=== PATIENT | female | born 1990 | race Caucasian/White ===

== ENCOUNTER 2020-03-05 11:34 | Emergency (ER) | payer OTHER ==
[~2020-03-05] VITALS: Ht 160 cm; Wt 74.1 kg
[2020-03-05] MEDS ORDERED: TIZA4CAP PO (11:47)
[2020-03-05] MEDS ORDERED: DICL75TA PO (11:47)
[2020-03-05] MEDS ORDERED: GABA-843 PO (11:47)
[2020-03-05] MEDS ORDERED: TYLETAB14 PO (11:47)
[2020-03-05] MEDS ORDERED: PRED5PAK PO (12:05)
[2020-03-05] MEDS ORDERED: diazePAM 10 MG TAB PO ONE (13:00)
[2020-03-05] MEDS ORDERED: KETOROLAC 30 MG/ML 1ML VIAL IV ONE (13:00)
[2020-03-05 14:23] LABS: BASO # 0.1 10^3/uL (0.0-0.2); BASO % 0.5 % (0.0-1.0); EOS # 0.1 10^3/uL (0.0-0.5); EOS % 0.9 % (0.0-3.0); HEMATOCRIT 43.5 % (36.0-47.0); HEMOGLOBIN 14.2 g/dl (12.0-15.5); LYMPH # 4.3 10^3/uL (1.5-5.0); LYMPH % 29.4 % (24.0-44.0); MEAN CORPUSCULAR HEMOGLOBIN 31.8 pg (27.0-33.0); MEAN CORPUSCULAR HGB CONC 32.6 g/dl (32.0-36.5); MEAN CORPUSCULAR VOLUME 97.3 fl (80.0-96.0); MONO % 6.8 % (0.0-5.0); PLATELET COUNT, AUTOMATED 295 10^3/uL (150-450); RED BLOOD COUNT 4.47 10^6/uL (4.00-5.40); WHITE BLOOD COUNT 14.5 10^3/uL (4.0-10.0)
[2020-03-05] MEDS ORDERED: diphenhydrAMINE 50MG/ML VIAL (J1200) IV ONE (14:45)
[2020-03-05] MEDS ORDERED: METOCLOPRAMIDE INJ 10MG/2ML VIAL (J2765 PER 1) IV ONE (14:45)
[2020-03-05 14:51] LABS: ALBUMIN 3.8 GM/DL (3.2-5.2); ALT/SGPT 20 U/L (12-78); BILIRUBIN,DIRECT 0.2 MG/DL (0.0-0.2); BLOOD UREA NITROGEN 13 MG/DL (7-18); CALCIUM LEVEL 9.4 MG/DL (8.5-10.1); CARBON DIOXIDE LEVEL 29 MEQ/L (21-32); CHLORIDE LEVEL 106 MEQ/L (98-107); CK-MB VALUE MASS < 1.0 NG/ML (<3.6); CPK CREATINE PHOSPHOKINASE 66 U/L (26-192); CREATININE FOR GFR 0.81 MG/DL (0.55-1.30); GLOMERULAR FILTRATION RATE > 60.0 (>60); GLUCOSE, FASTING 74 MG/DL (70-100); HCG, SERUM QUALITATIVE NEGATIVE (NEGATIVE); LIPASE 104 U/L (73-393); MB/CK RELATIVE INDEX 1.52 (< OR =4); POTASSIUM SERUM 4.2 MEQ/L (3.5-5.1); SODIUM LEVEL 141 MEQ/L (136-145); TOTAL PROTEIN 7.6 GM/DL (6.4-8.2); TROPONIN I < 0.02 NG/ML (< 0.10)
[2020-03-05] MEDS ORDERED: PROHANCE 279.3MG/ML 15ML VIAL As Ordered ONE (16:42)
[2020-03-05 18:31] VITALS: BP 127/81
--- NOTE | 2020-03-17 12:35 | ECGEPIP ---
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
--- NOTE | 2020-04-01 13:06 | REP ---
CT OF THE BRAIN WITHOUT CONTRAST: HISTORY: Severe migraine. FINDINGS: CT brain performed without IV contrast. Coronal reconstruction images are performed. The ventricles are normal in size and position with no midline shift or mass effect. Aranda-white differentiation is well-maintained. There is no acute intracranial hemorrhage or extra-axial fluid collection. Bone window examination is unremarkable. IMPRESSION: Negative noncontrast CT brain. Preliminary report provided by virtual radiology at the time of the examination. LESLIED
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
== END 2020-03-05 18:49 | disposition home or self-care (01) ==
LOC: M ED 11:34
DX: M54.5 Low back pain (principal); G89.29 Other chronic pain; R51 Headache; M51.37 Other intervertebral disc degeneration, lumbosacral region; G93.9 Disorder of brain, unspecified; F41.9 Anxiety disorder, unspecified; F32.9 Major depressive disorder, single episode, unspecified; F17.210 Nicotine dependence, cigarettes, uncomplicated
CPT/HCPCS: 70450; 72158; 80048; 80076; 81001; 82550; 82553; 83690; 84484; 84703; 85025; 87040; 93005; 96374; 96375; 99284; A9576; J1200; J1885; J2765

== ENCOUNTER 2020-04-09 02:35 | Inpatient (IN) | payer OTHER ==
[~2020-04-09] VITALS: Ht 160 cm; Wt 74.8 kg
[~2020-04-09 02:35] MED LIST: DICL75TA PO; GABA-843 PO; PRED5PAK PO; TIZA4CAP PO; TYLETAB14 PO
[2020-04-09] MEDS ORDERED: VALI10TA PO (02:43)
[2020-04-09 03:30] LABS: HEMATOCRIT 37.6 % (36.0-47.0); HEMOGLOBIN 12.3 g/dl (12.0-15.5); MEAN CORPUSCULAR HEMOGLOBIN 31.2 pg (27.0-33.0); MEAN CORPUSCULAR HGB CONC 32.7 g/dl (32.0-36.5); MEAN CORPUSCULAR VOLUME 95.4 fl (80.0-96.0); PLATELET COUNT, AUTOMATED 332 10^3/uL (150-450); RED BLOOD COUNT 3.94 10^6/uL (4.00-5.40); WHITE BLOOD COUNT 18.5 10^3/uL (4.0-10.0)
[2020-04-09 03:56] LABS: AMPHETAMINES LEVEL URINE NEGATIVE (NEGATIVE); BARBITURATES URINE NEGATIVE (NEGATIVE); BENZODIAZEPINES URINE POSITIVE (NEGATIVE); CANNABINOIDS URINE POSITIVE (NEGATIVE); COCAINE METABOLITE URINE NEGATIVE (NEGATIVE); METHADONE URINE NEGATIVE (NEGATIVE); OPIATES URINE NEGATIVE (NEGATIVE); PHENCYCLIDINE URINE NEGATIVE (NEGATIVE)
[2020-04-09 04:07] LABS: ACETAMINOPHEN LEVEL < 2.0 UG/ML (10.0-30.0); ALBUMIN 3.9 GM/DL (3.2-5.2); ALT/SGPT 15 U/L (12-78); BILIRUBIN,DIRECT 0.1 MG/DL (0.0-0.2); BILIRUBIN,TOTAL 0.4 MG/DL (0.2-1.0); BLOOD UREA NITROGEN 10 MG/DL (7-18); CALCIUM LEVEL 9.6 MG/DL (8.5-10.1); CARBON DIOXIDE LEVEL 23 MEQ/L (21-32); CHLORIDE LEVEL 109 MEQ/L (98-107); CREATININE FOR GFR 0.92 MG/DL (0.55-1.30); ETHYL ALCOHOL (ETHANOL) < 0.003 % (0.000-0.010); GLOMERULAR FILTRATION RATE > 60.0 (>60); GLUCOSE, FASTING 118 MG/DL (70-100); POTASSIUM SERUM 4.3 MEQ/L (3.5-5.1); SALICYLATE LEVEL < 1.7 MG/DL (5.0-30.0); SODIUM LEVEL 139 MEQ/L (136-145)
[2020-04-09 04:11] LABS: HCG, SERUM QUALITATIVE NEGATIVE (NEGATIVE)
[2020-04-09] MEDS ORDERED: MULTTAB20 PO (11:03)
[2020-04-09] MEDS ORDERED: JULE1TAB PO (11:03)
[2020-04-09] MEDS ORDERED: WELLTAB38 PO (11:03)
[2020-04-09] MEDS ORDERED: tiZANidine 4 MG TAB PO ONE (11:30)
[2020-04-09] MEDS ORDERED: GABAPENTIN 300 MG CAP PO ONE (14:00)
[2020-04-09] MEDS ORDERED: diazePAM 10 MG TAB PO PRN (14:45)
[2020-04-09] MEDS ORDERED: MOM 30ML SUSPENSION UDC PO PRN (14:45)
[2020-04-09] MEDS ORDERED: MAALOX 30 ML SUSP *UDC PO PRN (14:45)
[2020-04-09 16:42] VITALS: BP 133/84
[2020-04-09] MEDS ORDERED: NICOTINE 21MG/24HR 1 EA TRANSDERMAL TD ONE (17:30)
[2020-04-09] MEDS: GABAPENTIN 300 MG CAP PO SCH (20:54)
[2020-04-09] MEDS: tiZANidine 4 MG TAB PO SCH (20:54)
[2020-04-09] MEDS: traZODone 50 MG TAB PO PRN (20:54)
[2020-04-09] MEDS ORDERED: ONDANSETRON 4 MG ORAL DISINTEGRATING TAB PO ONE (21:45)
[2020-04-10 06:33] VITALS: BP 142/70
[2020-04-10] MEDS: GABAPENTIN 300 MG CAP PO SCH ×3 (08:39→20:47)
[2020-04-10] MEDS: tiZANidine 4 MG TAB PO SCH ×2 (08:40→20:47)
[2020-04-10] MEDS: NICOTINE 21MG/24HR 1 EA TRANSDERMAL TD SCH ×2 (09:00→14:18)
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
[2020-04-10] MEDS ORDERED: diazePAM 5 MG TAB PO PRN (11:30)
[2020-04-10] MEDS ORDERED: ONDANSETRON 4 MG ORAL DISINTEGRATING TAB PO ONE (12:00)
[2020-04-10] MEDS ORDERED: buPROPion **XL** TABLET 150MG (WELLBUTRIN XL) PO ONE (14:00)
[2020-04-10] MEDS: LIDOCAINE 5% (LIDODERM) PATCH TD SCH (14:06)
--- NOTE | 2020-04-10 14:47 | HPEPDOC ---
[facility] Medical History & Physical Date of Admission Apr 09, 2020 Date of Service: Apr 10, 2020 Attending Physician: A History and Physical CHIEF COMPLAINT: Suicide attempt HISTORY OF PRESENT ILLNESS: Patient is a 29-year-old female with depression, anxiety, chronic low back pain, and migraines who is in the inpatient mental health unit for suicide attempt. She has longitudinal cuts on her right wrist. Otherwise for the past few days, she has not been feeling well. Yesterday she started having nausea, diarrhea, vomiting. She tells that her significant other also had similar symptoms. Denies sick contacts, travel, recent antibiotics, or eating anything strange. She requested some lemon wedges for nausea. I told her it would be okay to try, but she'll have Zofran as needed as well. Other than that, she has chronic low back pain that has been unchanged. She also has been having migraines that have been unchanged. Denies any diplopia. PAST MEDICAL HISTORY: 1. Depression/anxiety. 2. Suicide attempt. 3. Arthritis 4. DJD 5. Remote history of asthma 6. Migraines 7. Frequent UTIs 8. Questionable pituitary lesion. PAST SURGICAL HISTORY: 1. Appendectomy. 2. Surgery for intussusception SOCIAL HISTORY: Tobacco use: Vapes on and off ETOH: Rarely Illicit drug use: Smokes marijuana when stressed FAMILY HISTORY: Father: High blood pressure and hyperlipidemia Mother: Unknown per patient ALLERGIES: Please see below. REVIEW OF SYSTEMS: CONSTITUTIONAL: Reports a sensation of mental fogginess. Denies any fever or chills. ENT: Denies sore throat. Denies dysphagia. RESPIRATORY: Denies shortness of breath. Denies cough. CARDIOVASCULAR: Denies chest pain. Denies palpitations. GASTROINTESTINAL: Reports nausea, vomiting, and diarrhea for one days duration GENITOURINARY: Denies dysuria. CUTANEOUS: Denies rashes. MUSCULOSKELETAL: Reports difficulty with ambulation, tells me that she uses a walking stick home NEUROLOGICAL: Intermittent numbness in her legs ENDOCRINOLOGY: Denies polyuria, polyphagia, polydipsia HOME MEDICATIONS: Please see below. PHYSICAL EXAMINATION: VITAL SIGNS: Temperature 98.5, pulse 91, respiratory rate 18, blood pressure 142/70, pulse oximetry 98 % on room air. GENERAL: Comfortable, in no apparent distress. HEENT: Head normocephalic/atraumatic, EOMI, sclera clear. NECK: Supple RESPIRATORY: Lungs clear to auscultation bilaterally, no rales, wheeze or rhonchi. CARDIOVASCULAR: Regular rate and rhythm. ABDOMEN: Soft, mild tenderness, decreased bowel sounds MUSCLE SKELETAL: Exhibit back pain when tested muscles of arms. No pitting edema NEUROLOGICAL: CN 312 grossly intact, no focal deficits noted. PSYCHOLOGICAL: Flat affect, appears depressed LABORATORY DATA: See below. ASSESSMENT AND PLAN: 1. Suicide attempt Being managed in the inpatient mental health unit 2. Gastroenteritis Started having acute nausea and vomiting with diarrhea. Significant other also nauseous May be viral gastroenteritis Recommended supportive care, oral rehydration Small meals with bland food Can try lemon wedge for nausea. Can also use Zofran for nausea Appears to have some leukocytosis. Repeat another CBC tomorrow. Leukocytosis may be from gastroenteritis versus self cutting 3. Chronic low back pain We'll try lidocaine patch to ease the pain 4. Migraines Okay to start Excedrin as needed 5. Questionable pituitary lesion No records here No neurologic symptoms, no diplopia, no signs of mass effect On discharge, she should see her PCP for workup of pituitary lesion Vital Signs Vital Signs Date Time Temp Pulse Resp B/P (MAP) Pulse Ox O2 Delivery O2 Flow Rate FiO2 04/10/20 06:33 98.5 91 18 142/70 (94) 04/09/20 16:42 98 Room Air Home Medications Scheduled Bupropion HCl (Wellbutrin Xl) 150 Mg Tab.er.24h, 150 MG PO DAILY NEW MED, PATIENT HAS NOT STARTED Desogestrel-Ethinyl Estradiol ( 28 Day Tablet) 1 Each Tablet, 1 TAB PO DAILY Gabapentin (Gabapentin) 300 Mg Capsule, 300 MG PO TID No122/Iron/Folic Acid ( Multi Tablet) 1 Each Tablet, 1 TAB PO DAILY Tizanidine HCl (Tizanidine HCl) 4 Mg Capsule, 4 MG PO BID Scheduled PRN Acetaminophen with Codeine (Tylenol with Codeine #3 Tablet) 1 Each Tablet, 1-2 TAB PO Q6H PRN for PAIN MDD 6 TABLETS Diazepam (Valium) 10 Mg Tablet, 15 MG PO BID PRN for ANXIETY Allergies Coded Allergies: No Known Allergies (Verified Allergy, Unknown, 03/05/20) A-FIB/CHADSVASC A-FIB History Current/History of A-Fib/PAF?: No JATIN ZAFAR DO Apr 10, 2020 14:29
[2020-04-10] MEDS: EXCEDRIN MIGRAINE TABLET PO PRN (15:34)
[2020-04-10] MEDS: **NOTE PATIENT COMMENT** MISC XX SCH (20:49)
[2020-04-11 06:28] VITALS: BP 134/72
[2020-04-11 07:44] LABS: HEMOGLOBIN 13.7 g/dl (12.0-15.5); MEAN CORPUSCULAR HEMOGLOBIN 31.1 pg (27.0-33.0); MEAN CORPUSCULAR HGB CONC 31.9 g/dl (32.0-36.5); MEAN CORPUSCULAR VOLUME 97.7 fl (80.0-96.0); PLATELET COUNT, AUTOMATED 351 10^3/uL (150-450); WHITE BLOOD COUNT 13.1 10^3/uL (4.0-10.0)
[2020-04-11] MEDS: tiZANidine 4 MG TAB PO SCH ×2 (08:16→21:06)
[2020-04-11] MEDS: LIDOCAINE 5% (LIDODERM) PATCH TD SCH (08:16)
[2020-04-11] MEDS: buPROPion **XL** TABLET 150MG (WELLBUTRIN XL) PO SCH (08:16)
[2020-04-11] MEDS: GABAPENTIN 300 MG CAP PO SCH ×3 (08:16→21:06)
[2020-04-11] MEDS: NICOTINE 21MG/24HR 1 EA TRANSDERMAL TD SCH (08:17)
[2020-04-11] MEDS: ONDANSETRON 4 MG ORAL DISINTEGRATING TAB PO PRN (08:17)
[2020-04-11] MEDS: ACETAMINOPHEN TAB 650MG DOSE (2X325MG) PO PRN (13:47)
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
[2020-04-11 18:56] VITALS: BP 142/88
[2020-04-11] MEDS: diazePAM 5 MG TAB PO PRN (21:06)
[2020-04-11] MEDS: **NOTE PATIENT COMMENT** MISC XX SCH (21:08)
[2020-04-12 06:41] VITALS: BP 145/94
[2020-04-12] MEDS: NICOTINE 21MG/24HR 1 EA TRANSDERMAL TD SCH (09:25)
[2020-04-12] MEDS: LIDOCAINE 5% (LIDODERM) PATCH TD SCH (09:25)
[2020-04-12] MEDS: GABAPENTIN 300 MG CAP PO SCH ×3 (09:26→20:41)
[2020-04-12] MEDS: tiZANidine 4 MG TAB PO SCH ×2 (09:26→20:42)
[2020-04-12] MEDS: EXCEDRIN MIGRAINE TABLET PO PRN (09:26)
[2020-04-12] MEDS: buPROPion **XL** TABLET 150MG (WELLBUTRIN XL) PO SCH (09:26)
[2020-04-12] MEDS: ACETAMINOPHEN TAB 650MG DOSE (2X325MG) PO PRN ×2 (16:00→23:12)
[2020-04-12 18:05] VITALS: BP 135/93
[2020-04-12] MEDS: **NOTE PATIENT COMMENT** MISC XX SCH (20:39)
[2020-04-12] MEDS: diazePAM 5 MG TAB PO PRN (20:42)
[2020-04-12] MEDS: traZODone 50 MG TAB PO PRN (23:12)
[2020-04-13] MEDS: ONDANSETRON 4 MG ORAL DISINTEGRATING TAB PO PRN (05:10)
[2020-04-13 06:59] VITALS: BP 142/84
[2020-04-13] MEDS: buPROPion **XL** TABLET 150MG (WELLBUTRIN XL) PO SCH (09:00)
[2020-04-13] MEDS: LIDOCAINE 5% (LIDODERM) PATCH TD SCH (09:00)
[2020-04-13] MEDS: NICOTINE 21MG/24HR 1 EA TRANSDERMAL TD SCH (09:00)
[2020-04-13] MEDS: tiZANidine 4 MG TAB PO SCH ×2 (09:00→22:11)
[2020-04-13] MEDS: GABAPENTIN 300 MG CAP PO SCH ×3 (09:00→22:11)
--- NOTE | 2020-04-13 15:40 | MHIPN ---
DATE: 04/12/2020 The patient today tells me that she is feeling fine. She says that she is having pain in her back, though, and as a result she did not sleep good last night. She has no other complaints other that. MENTAL STATUS EXAMINATION: This patient is alert and oriented times three, pleasant and cooperative, verbally spontaneous. There is no formal thought disorder noted. Mood is better. Affect full range and appropriate. She is not psychotic, suicidal, homicidal. Concentration is fair. Memory is intact. Insight and judgment are fair. DIAGNOSES: 1. Major depressive disorder. 2. Posttraumatic stress disorder. 3. Unspecified anxiety disorder. TREATMENT PLAN: At this point, the patient is stable and will continue on the current medications, and these will be titrated as indicated until the patient is restabilized. [facility]
[2020-04-13] MEDS: ACETAMINOPHEN TAB 650MG DOSE (2X325MG) PO PRN ×2 (15:48→22:57)
[2020-04-13] MEDS: diazePAM 5 MG TAB PO PRN (16:05)
[2020-04-13 18:12] VITALS: BP 152/77
[2020-04-13] MEDS: **NOTE PATIENT COMMENT** MISC XX SCH (21:00)
[2020-04-13] MEDS: traZODone 50 MG TAB PO PRN (22:11)
[2020-04-14 06:36] VITALS: BP 122/70
[2020-04-14] MEDS: NICOTINE 21MG/24HR 1 EA TRANSDERMAL TD SCH (09:01)
[2020-04-14] MEDS: tiZANidine 4 MG TAB PO SCH (09:01)
[2020-04-14] MEDS: LIDOCAINE 5% (LIDODERM) PATCH TD SCH (09:03)
[2020-04-14] MEDS: buPROPion **XL** TABLET 150MG (WELLBUTRIN XL) PO SCH (09:03)
[2020-04-14] MEDS: GABAPENTIN 300 MG CAP PO SCH (09:03)
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
[2020-04-14] MEDS: ACETAMINOPHEN TAB 650MG DOSE (2X325MG) PO PRN (10:21)
[2020-04-14] MEDS: diazePAM 5 MG TAB PO PRN (10:21)
[2020-04-14] MEDS ORDERED: WELLTAB38 PO (10:31)
--- NOTE | 2020-04-15 15:18 | MHIPN ---
DATE: 04/13/2020 SUBJECTIVE: The patient today states that she continues to feel good. She denies being suicidal and has no complaints other than her ongoing back pain. MENTAL STATUS EXAM: She is alert and oriented x3, pleasant, cooperative, verbally spontaneous. No formal thought disorder noted. She says her mood is good. Her affect is appropriate to mood. She is not psychotic, suicidal, homicidal. Concentration is fair. Memory intact. Insight and judgment is fair. DIAGNOSIS: Major depressive disorder, post-traumatic stress disorder and unspecified anxiety disorder. TREATMENT PLAN: At this point, we will continue to monitor the patient for continued elevation and stabilization of her mood and continue resolution of any suicidal ideations. LIZBETH
== END 2020-04-14 13:20 | disposition home or self-care (01) | DRG 885 ==
LOC: M ED 02:35 → M ED INP 14:45 → M PSY 16:00
PROVIDERS: ADMIT Psychiatry & Neurology Addiction Medicine; ATTEND Psychiatry & Neurology Addiction Medicine
DX: F33.9 Major depressive disorder, recurrent, unspecified (principal); F41.9 Anxiety disorder, unspecified; Z79.899 Other long term (current) drug therapy; Z62.810 Personal history of physical and sexual abuse in childhood; Z63.0 Problems in relationship with spouse or partner; Z91.5 Personal history of self-harm; G43.909 Migraine, unspecified, not intractable, without status migrainosus; Z87.440 Personal history of urinary (tract) infections; M19.90 Unspecified osteoarthritis, unspecified site; A08.4 Viral intestinal infection, unspecified; M54.5 Low back pain; F43.12 Post-traumatic stress disorder, chronic

== ENCOUNTER → 2020-05-22 | Outpatient (CLI) | payer OTHER ==
[~2020-05-22] MED LIST changes: +JULE1TAB PO; +MULTTAB20 PO; +VALI10TA PO; +WELLTAB38 PO
--- NOTE | 2020-05-24 07:49 | REP ---
INDICATION: PULMONARY NODULE COMPARISON: None TECHNIQUE: Axial noncontrast images from the thoracic inlet to the upper abdomen with coronal and sagittal reformations. This CT examination was performed using the following dose reduction techniques: Automated exposure control, adjustment of mA and/or kv according to the patient's size, and use of iterative reconstruction technique. FINDINGS: There is a 3 mm noncalcified pulmonary nodule in the periphery of the left lower lobe (image 59). The lung saldaña are otherwise essentially clear. No consolidation, effusion, or pneumothorax. Tracheobronchial tree is patent. No adenopathy. Mediastinum demonstrates normal vascular structures and appearance to the heart/pericardium. Surrounding musculoskeletal structures are intact. IMPRESSION: 3 mm noncalcified nodule in the periphery of the left lower lobe. Low risk patients require no further investigation while high risk patients may warrant 12 month follow-up examination. <Electronically signed by Prashant Rincon > 05/24/20 0745
== END ==
LOC: M RAD 12:30
PROVIDERS: ATTEND Family Medicine
DX: R91.1 Solitary pulmonary nodule (principal)

== ENCOUNTER → 2020-08-01 | Outpatient (CLI) | payer OTHER ==
[~2020-08-01] MED LIST changes: +GABA-282 PO; -GABA-843 PO
[2020-08-01 15:55] LABS: BASO % 0.6 % (0.0-1.0); EOS # 0.1 10^3/uL (0.0-0.5); EOS % 1.1 % (0.0-3.0); HEMATOCRIT 39.8 % (36.0-47.0); HEMOGLOBIN 12.7 g/dl (12.0-15.5); LYMPH # 2.2 10^3/uL (1.5-5.0); LYMPH % 33.4 % (24.0-44.0); MEAN CORPUSCULAR HEMOGLOBIN 31.2 pg (27.0-33.0); MEAN CORPUSCULAR HGB CONC 31.9 g/dl (32.0-36.5); MEAN CORPUSCULAR VOLUME 97.8 fl (80.0-96.0); MONO # 0.4 10^3/uL (0.0-0.8); MONO % 6.2 % (0.0-5.0); NEUTROPHILS # 3.8 10^3/uL (1.5-8.5); NEUTROPHILS % 58.5 % (36.0-66.0); PLATELET COUNT, AUTOMATED 281 10^3/uL (150-450); RED BLOOD COUNT 4.07 10^6/uL (4.00-5.40); WHITE BLOOD COUNT 6.5 10^3/uL (4.0-10.0)
[2020-08-01 16:26] LABS: ALBUMIN 3.6 GM/DL (3.2-5.2); ALT/SGPT 18 U/L (12-78); BILIRUBIN,TOTAL 0.6 MG/DL (0.2-1.0); BLOOD UREA NITROGEN 10 MG/DL (7-18); CALCIUM LEVEL 9.2 MG/DL (8.5-10.1); CARBON DIOXIDE LEVEL 29 MEQ/L (21-32); CHLORIDE LEVEL 104 MEQ/L (98-107); CREATININE FOR GFR 0.82 MG/DL (0.55-1.30); GLOMERULAR FILTRATION RATE > 60.0 (>60); GLUCOSE, FASTING 87 MG/DL (70-100); POTASSIUM SERUM 4.4 MEQ/L (3.5-5.1); RHEUMATOID FACTOR QUANT < 10.0 IU/ML (<15.0); SODIUM LEVEL 141 MEQ/L (136-145); TOTAL 25(OH) VITAMIN D 20.9 NG/ML (30.0-100.0)
[2020-08-01 16:27] LABS: PROLACTIN 5.5 NG/ML
[2020-08-01 16:30] LABS: ERYTHROCYTE SEDIMENTATION RATE 11 mm/hr (0-20)
[2020-08-05 14:08] LABS: ANTINUCLEAR ANTIBODIES DIRECT Negative (Negative)
== END ==
LOC: M WUC 11:54
PROVIDERS: ATTEND Psychiatry & Neurology Neurology
DX: R51.9 Headache, unspecified (principal); D35.2 Benign neoplasm of pituitary gland

== ENCOUNTER → 2020-08-01 | Outpatient (CLI) | payer OTHER ==
[2020-08-01 16:26] LABS: THYROID STIMULATING HORMONE 1.72 uIU/ML (0.358-3.740)
[2020-08-01 16:27] LABS: CORTISOL AM 5.1 UG/DL (4.3-22.4); PROLACTIN 5.7 NG/ML
== END ==
LOC: M WUC 11:57
PROVIDERS: ATTEND Nurse Practitioner Family
DX: D35.2 Benign neoplasm of pituitary gland (principal)

== ENCOUNTER → 2020-08-21 | Outpatient (REF) | payer OTHER ==
[2020-08-21 19:56] LABS: CHLAMYDIA DNA AMPLIFICATION NEGATIVE (NEGATIVE); GC DNA AMPLIFICATION NEGATIVE (NEGATIVE)
== END ==
LOC: M SFHCWAGY 17:00
PROVIDERS: ATTEND Obstetrics & Gynecology
DX: Z20.2 Contact with and (suspected) exposure to infections with a predominantly sexual mode of transmission (principal)
CPT/HCPCS: 87661; G0463

== ENCOUNTER → 2020-08-21 | Outpatient (REF) | payer OTHER | LOC: M PLALAB 12:19 | PROVIDERS: ATTEND Obstetrics & Gynecology | DX: Z53.29 Procedure and treatment not carried out because of patient's decision for other reasons (principal) ==

== ENCOUNTER → 2020-08-26 | Outpatient (REF) | payer OTHER ==
[2020-08-26 15:57] LABS: APPEARANCE, URINE HAZY (CLEAR); BACTERIA, URINE AUTO 2+ (NEGATIVE); BILIRUBIN, URINE AUTO NEGATIVE (NEGATIVE); BLOOD, URINE BLOOD NEGATIVE (NEGATIVE); COLOR, URINE YELLOW (YELLOW); GLUCOSE, URINE (UA) AUTO NEGATIVE (NEGATIVE); KETONE, URINE AUTO NEGATIVE (NEGATIVE); LEUKOCYTE ESTERASE, URINE AUTO TRACE (NEGATIVE); MUCUS, URINE SMALL (NEGATIVE); NITRITE, URINE AUTO NEGATIVE (NEGATIVE); PROTEIN, URINE AUTO NEGATIVE (NEGATIVE); RBC, URINE AUTO 1 /HPF (0-3); SQUAMOUS EPITHELIAL CELL UR AU 4 /HPF (0-6); UROBILINOGEN, URINE AUTO 0.2 mg/dL (0.0-2.0); WBC, URINE AUTO 3 /HPF (0-3)
[2020-08-26 17:28] LABS: HEPATITIS A ANTIBODY IGM NEGATIVE (NEGATIVE); HEPATITIS B CORE ANTIBODY IGM NEGATIVE (NEGATIVE); HEPATITIS B SURFACE ANTIGEN NEGATIVE (NEGATIVE); HEPATITIS C VIRUS ABY INDEX 0.1 INDEX (<0.8); HIV 1&2 SCREEN CENTAUR NEGATIVE (NEGATIVE)
[2020-08-26 17:32] LABS: CHLAMYDIA DNA AMPLIFICATION NEGATIVE (NEGATIVE); GC DNA AMPLIFICATION NEGATIVE (NEGATIVE)
== END ==
LOC: M PLALAB 12:43
PROVIDERS: ATTEND Obstetrics & Gynecology
DX: Z20.2 Contact with and (suspected) exposure to infections with a predominantly sexual mode of transmission (principal); R30.0 Dysuria

== ENCOUNTER → 2020-09-12 | Outpatient (CLI) | payer OTHER | LOC: M LABSMTC 12:17 | PROVIDERS: ATTEND Family Medicine | DX: Z11.52 Encounter for screening for COVID-19 (principal) | CPT/HCPCS: C9803; U0003 ==

== ENCOUNTER → 2020-11-05 | Outpatient (CLI) | payer OTHER ==
[2020-11-05 19:35] LABS: PLATELET COUNT, AUTOMATED 331 10^3/uL (150-450)
[2020-11-05 19:39] LABS: URINE PREG TEST NEGATIVE (NEGATIVE)
[2020-11-05 19:47] LABS: INR 0.91; PROTHROMBIN TIME 12.4 SECONDS (12.5-14.3)
[2020-11-05 19:48] LABS: PARTIAL THROMBOPLASTIN TIME 27.6 SECONDS (24.2-38.5)
== END ==
LOC: M WUC 15:29
PROVIDERS: ATTEND Physical Medicine & Rehabilitation
DX: Z01.812 Encounter for preprocedural laboratory examination (principal)

== ENCOUNTER → 2021-01-19 | Outpatient (REF) | payer OTHER | LOC: M LAB REF 19:09 | PROVIDERS: ATTEND Physician Assistant | DX: D49.2 Neoplasm of unspecified behavior of bone, soft tissue, and skin (principal) ==

== ENCOUNTER → 2021-05-15 | Outpatient (CLI) | payer OTHER ==
[~2021-05-15] MED LIST changes: +ISOVUE-370 76% 100ML VIAL ONE
--- NOTE | 2021-05-15 12:08 | REP ---
INDICATION: PULMONARY NODULE COMPARISON: 05/22/2021 a noncontrast enhanced exam TECHNIQUE: Standard helical technique after the intravenous administration of 100 cc Isovue 370 FINDINGS: The mediastinum and pulmonary melyssa are unchanged. There is a small amount of soft tissue density in the anterior mediastinum which is unchanged and likely representing a small amount of residual thymic tissue. There is no adenopathy. There are no pleural or pericardial effusions. The imaged upper abdomen and imaged osseous structures are unchanged. There is a partially imaged tiny focal area of decreased density seen in the interpolar region of the right kidney anteriorly likely a small cyst. Evaluation of the lung saldaña shows no change in the 3 mm size nodule in the left lower lobe. There is also a smaller stable pleural base left lower lobe nodule. No new abnormal nodules, masses, or opacities have developed. IMPRESSION: Stable CT findings as described above. <Electronically signed by Javed Gonzalez > 05/15/21 0336
== END ==
LOC: M PLAIMG 11:08
PROVIDERS: ATTEND Family Medicine
DX: R91.1 Solitary pulmonary nodule (principal)

== ENCOUNTER → 2021-05-27 | Outpatient (CLI) | payer OTHER ==
[~2021-05-27] MED LIST changes: +ISOVUE-300 61% 50ML VIAL As Ordered ONE; -ISOVUE-370 76% 100ML VIAL ONE; +LIDOCAINE 1% MDV 20ML VIAL As Ordered ONE; +TRIAMCINOLONE ACETONIDE SUSP 40 MG/ML VIAL (J3301) As Ordered ONE
--- NOTE | 2021-05-27 16:36 | REP ---
INDICATION: STRAIN OF MSL/FASC/TND POST GRP AT [facility] LEV, LEFT T. COMPARISON: None. TECHNIQUE: The procedure was performed under the direct supervision of Dr. Aranda. The benefits and risks including but not limited to pain infection and bleeding and anaphylaxis were explained to the patient and informed consent was obtained. The left femoral neck was localized using fluoroscopic guidance. The skin was prepped and draped in a sterile fashion. 1% lidocaine was used as a local anesthetic. Using fluoroscopic guidance, and last image hold technology, a 22-gauge spinal needle was inserted and advanced to the femoral neck. 0.5 ml of Isovue-300 was injected to verify placement. Six ml of a solution containing 5 ml of 1% Xylocaine and 1 mL of Kenalog 40 mg was injected. The needle was then removed. The patient tolerated the procedure well and there were no immediate complications. Less than 6 seconds of fluoro time was utilized for this procedure. FINDINGS: None IMPRESSION: Fluoro guidance for left hip injection <Electronically signed by Aleksey Hansen > 05/27/21 [id number] <Electronically signed by Ari Aranda > 05/27/21 [id number]
== END ==
LOC: M RADPRO 12:52
PROVIDERS: ATTEND Physician Assistant
DX: S76.312A Strain of muscle, fascia and tendon of the posterior muscle group at thigh level, left thigh, initial encounter (principal)
CPT/HCPCS: 20610; 77002; J3301; Q9967

== ENCOUNTER → 2021-06-12 | Outpatient (CLI) | payer OTHER ==
[~2021-06-12] MED LIST changes: -ISOVUE-300 61% 50ML VIAL As Ordered ONE; -LIDOCAINE 1% MDV 20ML VIAL As Ordered ONE; -TRIAMCINOLONE ACETONIDE SUSP 40 MG/ML VIAL (J3301) As Ordered ONE
--- NOTE | 2021-06-13 09:22 | REP ---
INDICATION: BETSY BILAT PAIN CONCERN ABOUT FEMALE BST DISEASE. COMPARISON: This is the patient's baseline mammogram. TECHNIQUE: 2D and 3D cc and MLO views of both breast were obtained. FINDINGS: The [place] volumetric breast density pattern is b, there are scattered areas of fibroglandular density. There are no suspicious calcifications, dominant masses, or areas of architectural distortion in either breast. IMPRESSION: BIRADS/ACR : Category 1: Negative. This patient's Tyrer-Cuzick lifetime breast cancer risk assessment score is 22.2%. This mammogram was interpreted with the aid of an FDA-approved computer-aided detection system. The patient states she had a clinical breast exam in May 2021. RECOMMENDATION: Due to the patient's Tyrer Alfredo score of greater than 20%, MRI the breast is recommended. <Electronically signed by Vance Roque > 06/13/21 [id number]
== END ==
LOC: M WHC 09:10
PROVIDERS: ATTEND Family Medicine
DX: Z71.1 Person with feared health complaint in whom no diagnosis is made (principal)
CPT/HCPCS: 77066; G0279

== ENCOUNTER → 2021-06-17 | Outpatient (CLI) | payer OTHER ==
[~2021-06-17] MED LIST changes: +AIMO70IN; +AMPH1CAP16; +AMPH1CAP4; +ISIB1TAB; +PRIL20TA2 PO
== END ==
LOC: M LABSMTC 12:09
PROVIDERS: ATTEND Pediatrics
DX: Z11.52 Encounter for screening for COVID-19 (principal)
CPT/HCPCS: C9803; U0003

== ENCOUNTER → 2021-09-07 | Outpatient (REF) | payer OTHER | LOC: M SFHCDERM 15:40 | PROVIDERS: ATTEND Physician Assistant | DX: D22.61 Melanocytic nevi of right upper limb, including shoulder (principal) ==

== ENCOUNTER → 2021-09-30 | Outpatient (CLI) | payer OTHER ==
[2021-09-30 13:07] LABS: PLATELET COUNT, AUTOMATED 282 10^3/uL (150-450)
[2021-09-30 13:21] LABS: INR 0.91; PROTHROMBIN TIME 12.6 SECONDS (12.7-14.5)
[2021-09-30 13:22] LABS: PARTIAL THROMBOPLASTIN TIME 27.9 SECONDS (25.9-37.0)
[2021-09-30 13:27] LABS: HCG, SERUM QUALITATIVE NEGATIVE (NEGATIVE)
== END ==
LOC: M WUC 10:21
PROVIDERS: ATTEND Physician Assistant
DX: M46.1 Sacroiliitis, not elsewhere classified (principal)

== ENCOUNTER → 2021-10-19 | Outpatient (CLI) | payer OTHER ==
[~2021-10-19] MED LIST changes: +PROHANCE 279.3MG/ML 15ML VIAL As Ordered ONE; +PROHANCE 279.3MG/ML 5ML VIAL As Ordered ONE
== END ==
LOC: M RAD 13:26
PROVIDERS: ATTEND Family Medicine
DX: N64.4 Mastodynia (principal)
CPT/HCPCS: A9576; C8908

== ENCOUNTER → 2022-04-01 | Outpatient (CLI) | payer OTHER ==
[~2022-04-01] MED LIST changes: -PROHANCE 279.3MG/ML 15ML VIAL As Ordered ONE; -PROHANCE 279.3MG/ML 5ML VIAL As Ordered ONE
== END ==
LOC: M RAD 14:09
PROVIDERS: ATTEND Otolaryngology
DX: J34.2 Deviated nasal septum (principal); J32.3 Chronic sphenoidal sinusitis

== ENCOUNTER → 2022-05-19 | Outpatient (CLI) | payer OTHER ==
[2022-05-19 16:18] LABS: PLATELET COUNT, AUTOMATED 340 10^3/uL (150-450)
[2022-05-19 16:25] LABS: INR 0.86
[2022-05-19 16:26] LABS: PARTIAL THROMBOPLASTIN TIME 27.7 SECONDS (24.8-34.2)
== END ==
LOC: M WUC 11:50
PROVIDERS: ATTEND Physician Assistant
DX: M54.16 Radiculopathy, lumbar region (principal)